=== PATIENT | female | born 1970 | race Caucasian/White ===

== ENCOUNTER 2018-03-19 14:30 | Observation (INO) | payer OTHER ==
[2018-03-19] MEDS ORDERED: Levofloxacin500mg IV 500 MG/100 ML BAG IV ONE (14:51)
[2018-03-19] MEDS ORDERED: Ringers Lactate 1,000 ML IV ONE (14:51)
[2018-03-19] MEDS ORDERED: NA CHLORIDE 0.9% 1,000 ML ONE (15:09)
[2018-03-19 15:27] LABS: Absolute Lymphocytes (CBC) 2.7 K/uL (0.7-4.9); Absolute Neutrophil 11.4 K/uL (1.8-8.0); Basophils % 0.6 % (0-1.3); Eosinophils % 0.7 % (0-4.4); Hematocrit 39.6 % (36.0-45.0); Lymphocytes % 17.7 % (15.3-44.8); MCV 84.9 fL (80-100); MPV 9.9 fL (7.6-11.3); Monocytes % 6.4 % (3.3-12.3); RBC Red Blood Cell Count 4.67 M/uL (3.86-4.86)
[2018-03-19 15:54] LABS: BUN Blood Urea Nitrogen 22 mg/dL (7-18); Bicarbonate 26 mmol/L (21-32); Glucose Level 182 mg/dL (74-106); Potassium 3.9 mmol/L (3.5-5.1); Sodium Level 136 mmol/L (136-145)
[2018-03-19] MEDS ORDERED: LIDOCAINE 1% W/EPI 1:100,000 MDV 50 ML VIAL ONE (17:32)
[2018-03-19] MEDS ORDERED: MIDAZOLAM HCL 2 MG/2 ML INJ ONE (17:39)
[2018-03-19] MEDS ORDERED: PROPOFOL 200 MG/20 ML VIAL IV ONE (17:39)
[2018-03-19] MEDS ORDERED: FENTANYL CITR 100 MCG/2 ML ONE (17:40)
[2018-03-19] MEDS ORDERED: VANCOMYCIN/NS 1 gm 1 GM/250 ML BAG IV ONE (17:45)
[2018-03-19] MEDS ORDERED: MEPERIDINE HCL 50 MG/ML AMP IM PRN (18:36)
[2018-03-19] MEDS ORDERED: PROMETHAZINE 25 MG TABLET PO PRN (18:38)
[2018-03-19] MEDS ORDERED: PROMETHAZINE 25 MG/ML VIAL IV PRN (18:38)
[2018-03-19] MEDS ORDERED: Ringers Lactate 1,000 ML IV SCH (19:00)
[2018-03-19] MEDS ORDERED: TRAMADOL HCL 50 MG TAB PO PRN (20:12)
[2018-03-19] MEDS ORDERED: METAXALONE 800 MG TAB PO PRN (20:12)
[2018-03-19] MEDS ORDERED: ALPRAZOLAM 0.5 MG TABLET PO PRN ×2 (20:12→21:18)
[2018-03-19] MEDS: Ringers Lactate 1,000 ML IV SCH (20:45)
[2018-03-19] MEDS ORDERED: VANCOMYCIN 500 MG in NA CHLORIDE 0.9% 100 ML IVPB ONE (21:00)
[2018-03-19] MEDS ORDERED: D50W 25 GM/50 ML SYRINGE IV PRN (21:23)
[2018-03-19] MEDS ORDERED: GLUCAGON 1 MG/VIAL IM PRN (21:23)
[2018-03-19] MEDS: HYDROCODONE/APAP 5/325 MG TAB PO PRN (22:28)
[2018-03-19] MEDS ORDERED: Levofloxacin500mg IV 500 MG/100 ML BAG IV SCH (23:00)
[2018-03-20] MEDS: METRONIDAZOLE 500mg IVPB 500 MG/100 ML BAG IV SCH ×3 (01:27→16:58)
[2018-03-20] MEDS: HYDROCODONE/APAP 5/325 MG TAB PO PRN ×3 (04:31→16:56)
--- NOTE | 2018-03-20 04:34 | OP ---
Date of Procedure: 03/19/2018 Surgeon: Fernanda Yusuf MD Preoperative Diagnoses: Right labial abscess, uncontrolled diabetes, cellulitis, and leukocytosis. Postoperative Diagnoses: Right labial abscess, uncontrolled diabetes, cellulitis, and leukocytosis. Procedure Performed: Exam under anesthesia, incision and drainage of the right labial abscess. Anesthesia: General. Complications: No complications. Drains: No drains. Specimens: Aerobic and anaerobic cultures of the abscess cavity. Packing was left in place wet-to-dry with quarter-inch Nu Gauze. The patient's condition was stable. Description Of Procedure: After informed consent was verified, the patient was taken back to the OR. One gram of vancomycin was given besides her 5 mg of Levaquin. The decision was made to do this ju st to cover for MRSA given the fact that she had leukocytosis to 15,000. So plan was to give her the IV antibiotics for 24 hours, first drain the abscess packet, and then discharge her after making arr angements for home health. The vulva, vagina, and perineum were prepped and draped in a sterile fashion. A 10 cc of local was g iven all around the abscess. A 2 cm incision was made over the abscess cavity. There was a large am ount of pus that drained. Cultures were taken. Thorough irrigation of the abscess cavity after brin ging down the loculations to help with the hemostat was done and packing was done after thorough irri gation with at least 100 mL of warm normal saline and suction, there was excellent hemostasis. The p acking with Nu Gauze was done tightly and then a Kerlix sponge was placed on top and bandaged. Instr ument, needle, and sponge counts were done and were correct at the end of the case. The patient anne rated the procedure well. She was recovered from anesthesia and taken to PACU in stable condition. She will be admitted to the floor for glycemic control, restart all her home medications, IV antibiot ics, peaks and troughs with the vancomycin, and a CBC in the morning. She will have a consult with [facility] primary care physician, Dr. Morgan. ROSARIO/TERRY Voice ID: [id number] Report ID: [id number]
[2018-03-20 05:24] LABS: Absolute Lymphocytes (CBC) 3.2 K/uL (0.7-4.9); Absolute Monocytes 0.7 K/uL (0.1-1.3); Absolute Neutrophil 8.6 K/uL (1.8-8.0); Eosinophils % 1.5 % (0-4.4); Lymphocytes % 24.8 % (15.3-44.8); MCH 29.1 pg (27.0-35.0); MCV 84.6 fL (80-100); MPV 9.7 fL (7.6-11.3); Monocytes % 5.3 % (3.3-12.3); RBC Red Blood Cell Count 4.13 M/uL (3.86-4.86)
[2018-03-20] MEDS: Ringers Lactate 1,000 ML IV SCH ×2 (05:49→16:58)
[2018-03-20] MEDS ORDERED: Levofloxacin500mg IV 500 MG/100 ML BAG IV SCH (06:30)
[2018-03-20] MEDS: INSULIN -REGULAR HUMAN 50 UNIT/0.5 ML ML SQ SCH ×4 (07:30→20:41)
[2018-03-20] MEDS ORDERED: GLIMEPIRIDE 2 MG TABLET PO SCH (08:00)
[2018-03-20] MEDS: VANCOMYCIN 1.5 GM in NA CHLORIDE 0.9% 500 ML IVPB SCH ×2 (08:52→21:00)
[2018-03-20] MEDS ORDERED: LEVOTHYROXINE SOD 0.1 MG TAB PO SCH (09:00)
[2018-03-20] MEDS ORDERED: MELOXICAM 7.5 MG TAB PO SCH (09:00)
[2018-03-20] MEDS ORDERED: RAMIPRIL 2.5 MG CAP PO SCH (09:00)
[2018-03-20] MEDS ORDERED: PREGABALIN 75 MG CAP PO SCH (09:00)
[2018-03-20] MEDS ORDERED: FENOFIBRATE 160 MG TAB PO SCH (09:00)
== END 2018-03-20 20:45 | disposition home health service (06) ==
LOC: OR 14:30 → 2ND 18:34
PROVIDERS: ADMIT Obstetrics & Gynecology; ATTEND Obstetrics & Gynecology
PROC: 0U9MXZZ Drainage of Vulva, External Approach (ICD-10-PCS; principal; 2018-03-19 17:00)
DX: N76.4 Abscess of vulva (principal); N76.2 Acute vulvitis; E11.65 Type 2 diabetes mellitus with hyperglycemia
CPT/HCPCS: 36415; 80048; 81025; 82962; 85025; 87070; 87075; 87077; 87186; 87205; G0378; J2175; J2250; J3010; J3370; J7030

== ENCOUNTER 2021-02-08 18:21 | Emergency (ER) | payer OTHER ==
--- OUTSIDE RECORDS SUMMARY | 2021-02-08 18:24 | XMS REPORT | Continuity of Care Document ---
:1970 Author Organization [facility] t Address [address] [place] [address] Care Team Providers Name Role Phone John GILES Primary Care Physician Unavailable John GILES Attending Clinician Unavailable Lab, Fam Pob I Attending Clinician Unavailable Payers Payer Name Policy Type Policy Number Effective Date Expiration Date S [facility] [id number] 2020 PPO 00:00:00 Problems This patient has no known problems. Allergies, Adverse Reactions, Alerts This patient has no known allergies or adverse reactions. Medications This patient has no known medications. Vital Signs Vital Name Observation Time Observation Value Comments Source HEIGHT 2020-12-15 10:36:00 169 cm WEIGHT 2020-12-15 10:36:00 75.2 kg Procedures This patient has no known procedures. Encounters Start End Encounter Admission Attending Care Care Encounter Source Date/Time Date/Time Type Type Clinicians Facility Department ID 2020-12-21 2020-12-21 Outpatient WAQAS TYLER MDA [id number] 10:54:09 10:54:09 Billy candelario 2020-12-21 2020-12-21 Outpatient WAQAS GILES MDA MDA [id number] 10:50:00 10:50:00 PETE candelario 2020-12-15 2020-12-15 Outpatient WAQAS GILES MDA MDA [id number] 15:54:33 16:37:35 PETE candelario 2020-12-15 2020-12-15 Outpatient WAQAS GILES MDA MDA [id number] 14:24:20 14:24:20 PETE Cervantes o n 2020-12-15 2020-12-15 Outpatient WAQAS GILES, MDA MDA [id number] 11:25:19 11:25:19 PETE Cervantes o n 2020-12-15 2020-12-15 Outpatient WAQAS GILES, MDA MDA [id number] 09:53:24 11:24:46 PETE Cervantes o n 2020-12-13 2020-12-13 Outpatient EL TISHA, MDA MDA [id number] 14:22:05 14:22:05 PETE Cervantes o n 2020-12-13 2020-12-13 Outpatient WAQAS GILES, MDA MDA [id number] 14:22:03 14:22:03 PETE Cervantes o n 2020-12-13 2020-12-13 Outpatient WAQAS GILES, MDA MDA [id number] 14:21:58 14:21:58 PETE Cervantes o n 2020-12-13 2020-12-13 Outpatient WAQAS GILES, MDA MDA [id number] 14:21:56 14:21:56 PETE Cervantes o n 2020-12-12 2020-12-12 Outpatient WAQAS GILES, MDA MDA [id number] 15:15:28 15:32:31 PETE Cervantes o n 2020-09-20 2020-09-20 Laboratory Lab, [facility] [id number] 11:03:16 11:23:16 Only Fam Pob I Health [id number] [place] [id number] Professio [phone] nal [phone] 2020-06-08 2020-06-08 Laboratory Lab, [facility] [id number] 10:48:27 11:01:40 Only Fam Pob I Health [id number] [place] [id number] Professio [phone] nal [phone] Results This patient has no known results.
[2021-02-08 20:40] LABS: Absolute Lymphocytes (CBC) 3.3 K/uL (0.7-4.9); Basophils % 1.1 % (0-1.3); Hematocrit 36.5 % (36.0-45.0); Lymphocytes % 30.8 % (15.3-44.8); MPV 9.9 fL (7.6-11.3); RBC Red Blood Cell Count 4.29 M/uL (3.86-4.86)
[2021-02-08 20:56] LABS: ALT/SGPT 26 U/L (12-78); AST/SGOT 16 U/L (15-37); Albumin 4.1 g/dL (3.4-5.0); Alkaline Phosphatase 48 U/L (45-117); BUN Blood Urea Nitrogen 27 mg/dL (7-18); Bicarbonate 27 mmol/L (21-32); Bilirubin Direct < 0.1 mg/dL (0-0.2); Bilirubin Total 0.5 mg/dL (0.2-1.0); Glucose Level 131 mg/dL (74-106); Lipase 117 U/L (73-393); Potassium 3.5 mmol/L (3.5-5.1); Protein, Total 7.6 g/dL (6.4-8.2); Sodium Level 139 mmol/L (136-145)
[2021-02-08] MEDS ORDERED: MORPHINE 4 MG/ML SYR ONE (21:00)
[2021-02-08] MEDS ORDERED: ONDANSETRON 4 MG/2 ML VIAL ONE (21:00)
--- NOTE | 2021-02-08 21:27 | RAD REPORT ---
EXAM DESCRIPTION: CT - Abdomen Pelvis W Contrast - 02/08/2021 9:11 pm CLINICAL HISTORY: Abdominal pain COMPARISON: none. TECHNIQUE: Computed axial tomography of the abdomen pelvis was obtained. 100 cc Isovue-300 was admin istered intravenously. Oral contrast was not requested which limits evaluation of bowel. All CT scans are performed using dose optimization technique as appropriate and may include automated exposure control or mA/KV adjustment according to patient size. FINDINGS: 6 millimeter nodule right lower lobe. 2 millimeter calculus left kidney. No hydronephrosis. The liver, spleen, pancreas, adrenal and right kidney appear unremarkable. There is no evidence of diverticulitis. Normal appendix. IMPRESSION: 2 millimeter nonobstructing calculus left kidney 6 millimeter right lower lobe nodule. If patient is high risk then followup CT in 6 months would be r ecommended
[2021-02-08 22:15] LABS: Urine Blood Negative (Negative); Urine Glucose Negative (Negative); Urine Protein Negative (Negative); Urine Specific Gravity <=1.005 (1.005-1.030)
--- NOTE | 2021-02-08 22:16 | ER ---
Nurse's Notes [facility] Name: Pema Dietz Age: 50 yrs Sex: Female : 1970 Arrival Date: 02/08/2021 Time: 18:24 Bed 8 Private MD: Stephan Morgan Diagnosis: Calculus of kidney;Lower abdominal pain, unspecified Presentation: 02/08 18:32 Chief complaint: Patient states: LLQ abdominal pain x 3 days, radiates to LUQ while jl7 walking, denies N/V/D, denies urinary symptoms. Coronavirus screen: Client denies travel out of the [place] in the last 14 days. At this time, the client does not indicate any symptoms associated with coronavirus-19. Ebola Screen: No symptoms or risks identified at this time. Initial Sepsis Screen: Does the patient meet any 2 criteria? No. Patient's initial sepsis screen is negative. Does the patient have a suspected source of infection? No. Patient's initial sepsis screen is negative. Risk Assessment: Do you want to hurt yourself or someone else? Patient reports no desire to harm self or others. Onset of symptoms was February 06, 2021. Care prior to arrival: None. 18:32 Method Of Arrival: [facility] 18:32 Acuity: MARY 3 jl7 Triage Assessment: 18:34 General: Appears in no apparent distress. uncomfortable, Behavior is calm, cooperative, jl7 appropriate for age. Pain: Complains of pain in left lower quadrant Pain currently is 8 out of 10 on a pain scale. GI: Patient currently denies diarrhea, nausea, vomiting. 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 - Social history:: Smoking status: Patient reports the use of cigarette tobacco products, smokes one pack cigarettes per day. Screenin:28 Abuse screen: Denies threats or abuse. Denies injuries from another. Nutritional ad5 screening: No deficits noted. Tuberculosis screening: No symptoms or risk factors identified. Fall Risk None identified. Assessment: 20:26 General: Appears in no apparent distress. Behavior is calm, cooperative, appropriate ad5 for age. Neuro: No deficits noted. Level of Consciousness is awake, alert, obeys commands, Oriented to person, place, time, situation, Appropriate for age. Cardiovascular: No deficits noted. Heart tones present Capillary refill < 3 seconds Patient's skin is warm and dry. Cardiovascular: Pulses are all present. Respiratory: No deficits noted. Airway is patent Respiratory effort is even, unlabored, Respiratory pattern is regular, symmetrical. GI: Bowel sounds present X 4 quads. Abd is soft and non tender Pt reports L side abd pain, hx of "cysts", states feels similar. Irregular menstrual periods per pt. Pt states "bloated". Denies other GI/ c/o. : No deficits noted. No signs and/or symptoms were reported regarding the genitourinary system. Derm: Skin is pink, warm \\T\\ dry. Musculoskeletal: No deficits noted. No signs and/or symptoms reported regarding the musculoskeletal system. 21:47 Reassessment: Patient appears in no apparent distress at this time. Patient and/or ad5 family updated on plan of care and expected duration. Pain level reassessed. Patient is alert, oriented x 3, equal unlabored respirations, skin warm/dry/pink. Patient states symptoms have improved. 22:22 Reassessment: Patient appears in no apparent distress at this time. No changes from ad5 previously documented assessment. Patient is alert, oriented x 3, equal unlabored respirations, skin warm/dry/pink. Vital Signs: 18:32 BP 146 / 76; Pulse 86; Resp 17; Temp 98.2; Pulse Ox 99% on R/A; Weight 72.57 kg (R); jl7 Height 5 ft. 4 in. (162.56 cm); Pain 9/10; 20:29 BP 123 / 76; Pulse 73; Resp 16 S; Pulse Ox 97% on R/A; ad5 21:47 BP 123 / 68; Pulse 70; Resp 16 S; Pulse Ox 97% on R/A; ad5 22:22 BP 123 / 68; Pulse 72; Resp 16 S; Pulse Ox 100% on R/A; ad5 18:32 Body Mass Index 27.46 (72.57 kg, 162.56 cm) jl7 ED Course: 18:24 Patient arrived in ED. am2 18:24 Stephan Morgan MD is Private Physician. am2 18:34 Triage completed. jl7 18:34 Arm band placed on right wrist. Patient placed in waiting room, Patient notified of jl7 wait time. 20:01 José Miguel Best MD is Attending Physician. ps1 20:02 Diaz Mario is Primary Nurse. ad5 20:28 Patient has correct armband on for positive identification. Placed in gown. Bed in low ad5 position. Call light in reach. Side rails up X 1. Pulse ox on. NIBP on. Door closed. Noise minimized. Warm blanket given. 20:28 No provider procedures requiring assistance completed. Initial lab(s) drawn, by me, ad5 sent to lab. Inserted saline lock: 20 gauge in right antecubital area, using aseptic technique. Blood collected. 20:49 Lipase Sent. bs2 20:49 Hepatic Function Sent. bs2 20:49 Basic Metabolic Panel Sent. bs2 21:13 CT Abd/Pelvis - IV Contrast Only In Process Unspecified. EDMS 22:15 Fernanda Yusuf MD is Referral Physician. ps1 22:39 IV discontinued, intact, bleeding controlled, No redness/swelling at site. Pressure ad5 dressing applied. Administered Medications: 20:45 Drug: morphine 4 mg Route: IVP; Site: right antecubital; ad5 21:48 Follow up: Response: No adverse reaction; Pain is decreased; RASS: Alert and Calm (0) ad5 20:45 Drug: Zofran (Ondansetron) 4 mg Route: IVP; Site: right antecubital; ad5 21:48 Follow up: Response: No adverse reaction ad5 Outcome: 22:16 Discharge ordered by . ps1 22:38 Discharged to home ambulatory, with significant other. ad5 22:38 Condition: stable 22:38 Discharge instructions given to patient, Instructed on discharge instructions, follow up and referral plans. medication usage, Demonstrated understanding of instructions, follow-up care, medications, Prescriptions given X 2. 22:39 Patient left the ED. ad5 Signatures: Dispatcher [employer] EDMS Genet Andujar RN RN jl7 Olesya Parmar am2 José Miguel Best MD MD ps1 Diaz Mario ad5 Lee, Meera, RN RN bs2 Corrections: (The following items were deleted from the chart) 18:35 18:34 Allergies: No Known Allergies; jl7 jl7
--- NOTE | 2021-02-08 22:16 | EDPHYS ---
Physician Documentation [facility] Name: Pema Dietz Age: 50 yrs Sex: Female : 1970 Arrival Date: 02/08/2021 Time: 18:24 Bed 8 Private MD: Stephan Morgan ED Physician José Miguel Best HPI: 02/08 21:44 This 50 yrs old Female presents to ER via Ambulatory with complaints of ps1 Abdominal Pain - LLQ. 21:44 Patient states over last 3 days she has had left lower quadrant and groin pain. Hx of ps1 ovarian cyst, BTL, and ovarian polyp. Pain is mild with laying down worse with ambulation. Denies fever. Taking tylenol / ibuprofen without remission. Course is unchanged. Denies dysuria, VB, or discharge. No nausea or vomiting. . 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 - Social history:: Smoking status: Patient reports the use of cigarette tobacco products, smokes one pack cigarettes per day. ROS: 21:52 Constitutional: Negative for fever, chills, and weight loss, Eyes: Negative for injury, ps1 pain, redness, and discharge, Cardiovascular: Negative for chest pain, palpitations, and edema, Respiratory: Negative for shortness of breath, cough, wheezing, and pleuritic chest pain, MS/Extremity: Negative for injury and deformity, Skin: Negative for injury, rash, and discoloration, Neuro: Negative for headache, weakness, numbness, tingling, and seizure. 21:52 Abdomen/GI: Positive for abdominal pain, Negative for black/tarry stool, rectal pain, rectal bleeding. Exam: 21:52 Constitutional: This is a well developed, well nourished patient who is awake, alert, ps1 and in no acute distress. Head/Face: Normocephalic, atraumatic. Eyes: Pupils equal round and reactive to light, extra-ocular motions intact. Lids and lashes normal. Conjunctiva and sclera are non-icteric and not injected. Cardiovascular: Regular rate and rhythm. No gallops, murmurs, or rubs. Normal PMI, no JVD. No pulse deficits. Respiratory: Lungs have equal breath sounds bilaterally, clear to auscultation and percussion. No rales, rhonchi or wheezes noted. No increased work of breathing, no retractions or nasal flaring. 21:52 Abdomen/GI: Inspection: abdomen appears normal, Bowel sounds: normal, Palpation: mild abdominal tenderness, in the left lower quadrant, rebound tenderness, is not appreciated, involuntary guarding, is not appreciated. Vital Signs: 18:32 BP 146 / 76; Pulse 86; Resp 17; Temp 98.2; Pulse Ox 99% on R/A; Weight 72.57 kg (R); jl7 Height 5 ft. 4 in. (162.56 cm); Pain 9/10; 20:29 BP 123 / 76; Pulse 73; Resp 16 S; Pulse Ox 97% on R/A; ad5 21:47 BP 123 / 68; Pulse 70; Resp 16 S; Pulse Ox 97% on R/A; ad5 22:22 BP 123 / 68; Pulse 72; Resp 16 S; Pulse Ox 100% on R/A; ad5 18:32 Body Mass Index 27.46 (72.57 kg, 162.56 cm) jl7 MDM: 20:23 Patient medically screened. ps1 21:52 Differential diagnosis: kidney stone, malignancy, nonspecific abdominal pain, ovarian ps1 cyst, uterine fibroids, urinary tract infection. Data reviewed: vital signs, nurses notes, lab test result(s), EKG, and as a result, I will discharge patient. Counseling: I had a detailed discussion with the patient and/or guardian regarding: the historical points, exam findings, and any diagnostic results supporting the discharge/admit diagnosis, lab results, radiology results, the need for outpatient follow up, to return to the emergency department if symptoms worsen or persist or if there are any questions or concerns that arise at home. ED course: Pain meds in ED improved symptoms. Has 2mm stone. Home with expectant management. Toradol, zofran. Encourage fluids. Follow up with urology. Return precautions given. . 02/08 20:13 Order name: Basic Metabolic Panel; Complete Time: 21:39 ps1 02/08 20:13 Order name: CBC with Diff; Complete Time: 20:47 [facility] 02/08 20:13 Order name: Hepatic Function; Complete Time: 21:39 [facility] 02/08 20:13 Order name: Lipase; Complete Time: 21:39 [facility] 02/08 20:13 Order name: CT Abd/Pelvis - IV Contrast Only; Complete Time: 21:39 [facility] 02/08 22:14 Order name: Urine Dipstick-Ancillary; Complete Time: 22:17 [facility] 02/08 20:13 Order name: IV Saline Lock; Complete Time: 20:45 [facility] 02/08 20:13 Order name: Labs collected and sent; Complete Time: 20:45 [facility] 02/08 20:13 Order name: Urine Dipstick-Ancillary (obtain specimen) ps1 Administered Medications: 20:45 Drug: morphine 4 mg Route: IVP; Site: right antecubital; ad5 21:48 Follow up: Response: No adverse reaction; Pain is decreased; RASS: Alert and Calm (0) ad5 20:45 Drug: Zofran (Ondansetron) 4 mg Route: IVP; Site: right antecubital; ad5 21:48 Follow up: Response: No adverse reaction ad5 Disposition Summary: 02/08/21 22:16 Discharge Ordered Location: Home ps1 Problem: new ps1 Symptoms: have improved ps1 Condition: Stable ps1 Diagnosis - Calculus of kidney ps1 - Lower abdominal pain, unspecified ps1 Followup: ps1 - With: Fernanda Yusuf MD - When: as scheduled for reevaluation - Reason: Followup: ps1 - With: Emergency Department - When: As needed - Reason: Fever > 102 F, Worsening of condition Discharge Instructions: - Discharge Summary Sheet ps1 - Kidney Stones ps1 Forms: - Medication Reconciliation Form ps1 - Thank You Letter ps1 - Antibiotic Education ps1 - Prescription Opioid Use ps1 - Work release form ad5 Prescriptions: - ketorolac 10 mg Oral tablet - take 1 tablet by ORAL route every 4-6 hours not to exceed 40mg in 24hrs for up ps1 to 5 days total use; 15 tablet; Refills: 0, Product Selection Permitted - Zofran 4 mg Oral Tablet - take 1 tablet by ORAL route every 12 hours As needed; 20 tablet; Refills: 0, ps1 Product Selection Permitted Signatures: Dispatcher [facility] [employer] [facility] Genet Win RN RN jl7 José Miguel Best MD MD ps1 Diaz Mario ad5 Corrections: (The following items were deleted from the chart) 18:35 18:34 Allergies: No Known Allergies; [id number] jl7 21:53 21:44 Patient states over last 3 days she has had left lower quadrant and groin pain. ps1 Hx of ovarian cyst, BTL, and ovarian polyp. Pain is mild with laying down. . ps1
[2021-02-08 23:01] VITALS: TEMP 98.2
[2021-02-08 23:04] VITALS: BP 123/68
[2021-02-08 23:06] VITALS: O2SAT 100
== END 2021-02-08 22:39 | disposition home or self-care (01) ==
LOC: ER 18:21
DX: N20.0 Calculus of kidney (principal); F17.210 Nicotine dependence, cigarettes, uncomplicated; Z88.0 Allergy status to penicillin; Z88.1 Allergy status to other antibiotic agents
CPT/HCPCS: 85025; 80048; 36415; 80076; 81003; 83690; 74177; 96375; 96374; 99284; Q9967; J2405

== ENCOUNTER 2024-03-25 06:31 | Day surgery (SDC) | payer OTHER ==
[2024-03-24 09:46] LABS: Absolute Basophils 0.1 K/uL (0-0.5); Absolute Eosinophils 0.1 K/uL (0-0.5); Absolute Lymphocytes (CBC) 1.8 K/uL (0.7-4.9); Absolute Monocytes 0.6 K/uL (0.1-1.3); Absolute Neutrophil 7.6 K/uL (1.8-8.0); Basophils % 0.8 % (0-1.3); Eosinophils % 1.2 % (0-4.4); Hematocrit 38.6 % (36.0-45.0); Hemoglobin 12.9 g/dL (12.0-15.0); Lymphocytes % 17.2 % (15.3-44.8); MCH 29.2 pg (27.0-35.0); MCHC 33.4 g/dL (32.0-36.0); MCV 87.3 fL (80-100); MPV 9.3 fL (7.6-11.3); Monocytes % 6.4 % (3.3-12.3); Neutrophils % 74.4 % (41.7-73.7); Platelets 298 thou/uL (152-406); RBC Red Blood Cell Count 4.42 M/uL (3.86-4.86); Red Cell Distribution Width 13.2 % (12.1-15.2)
[2024-03-24 10:02] LABS: ALT/SGPT 23 U/L (13-56); Albumin/Globulin Ratio 1.1 (1.1-1.8); Alkaline Phosphatase 51 U/L (45-117); BUN Blood Urea Nitrogen 24 mg/dL (7-18); Bicarbonate 29 mEq/L (21-32); Bilirubin Direct 0.2 mg/dL (0-0.2); Bilirubin Indirect, Calculated 0.4 mg/dL (0.2-0.8); Bilirubin Total 0.6 mg/dL (0.2-1.0); Globulin 3.5 g/dL (2.3-3.5); Glomerular Filtration Rate 91 ml/min (=/>90); Glucose Level 164 mg/dL (74-106); Lipase 52 U/L (13-75); Protein, Total 7.5 g/dL (6.4-8.2); Sodium Level 139 mEq/L (136-145)
[2024-03-24 10:04] LABS: AST/SGOT < 10 U/L (15-37)
--- NOTE | 2024-03-24 11:35 | RAD REPORT ---
EXAM DESCRIPTION: RAD - Chest Pa And Lat (2 Views) - 03/24/2024 9:31 am CLINICAL HISTORY: Pre op pending cholecystectomy. Appetite COMPARISON: Chest Pa And Lat (2 Views) dated 03/24/2021; Chest Pa And Lat (2 Views) dated 06/28/2017; Chest Pa And Lat (2 Views) dated 02/07/2016; CHEST PA AND LAT 2 VIEW dated 08/14/2010 TECHNIQUE: PA and lateral views of the chest were obtained. FINDINGS: The lungs are clear. Heart size is normal and central vasculature is within normal limits. No pleural effusion or pneumothorax seen. No acute bony finding noted. IMPRESSION: No acute cardiopulmonary process.
--- NOTE | 2024-03-24 12:37 | EKG ---
Test Date: 2024-03-24 Test Time: 09:13:14 [place] Sea Diver: PRABHAKAR MEASUREMENT RESULTS: Intervals: Rate: 67 CA: 176 QRSD: 76 QT: 402 QTc: 424 [place]: P: 42 CA: 176 QRS: 27 T: 54 INTERPRETIVE STATEMENTS: Normal sinus rhythm Normal ECG No previous ECG available for comparison Electronically Signed On 03-24-24 12:37:30 CDT by Michael Alexandra
[2024-03-25] MEDS ORDERED: CEFOXITIN SODIUM 1 GM/VIAL ONE (06:48)
[2024-03-25] MEDS ORDERED: NA CHLORIDE 0.9% 1,000 ML ONE (06:49)
[2024-03-25] MEDS ORDERED: FENTANYL CITR 100 MCG/2 ML ONE (06:57)
[2024-03-25] MEDS ORDERED: propofoL 200 MG/20 ML VIAL IV ONE (06:57)
[2024-03-25] MEDS ORDERED: KETOROLAC 30 MG/ML INJ ONE (06:57)
[2024-03-25] MEDS ORDERED: MIDAZOLAM HCL 2 MG/2 ML INJ ONE (06:57)
[2024-03-25] MEDS ORDERED: GLYCOPYRROLATE 0.2 MG/ML SYR ONE ×2 (06:57→08:16)
[2024-03-25] MEDS ORDERED: LIDOCAINE 1% MPF 5 ML VIAL ONE (06:57)
[2024-03-25] MEDS ORDERED: ONDANSETRON 4 MG/2 ML VIAL ONE (06:57)
[2024-03-25] MEDS ORDERED: ROCURONIUM 50 MG/5 ML VIAL IV ONE (06:57)
[2024-03-25] MEDS: CIPROFLOXACIN 400mg IV 400 MG/200 ML BAG IV ONE (07:55)
[2024-03-25] MEDS ORDERED: NEOSTIGMINE 1 MG/ML -10 ML VIAL ONE (08:16)
[2024-03-25] MEDS ORDERED: Mastisol Adhesive Liq ONE (08:22)
--- NOTE | 2024-03-25 08:22 | P.BOP ---
Preoperative diagnosis: Symptomatic cholelithiasis, cholecystitis, RUQ abd pain Postoperative diagnosis: same Primary procedure: Laparoscopic cholecystectomy Estimated blood loss: <10cc Specimen: gb Findings: as above Anesthesia: General Complications: None Transferred to: Recovery Room Condition: Good
[2024-03-25] MEDS: SUGAMMADEX SODIUM 200 MG/2 ML VIAL IV ONE (08:43)
[2024-03-25] MEDS: HYDROMORPHONE HCL 1 MG/ML INJ ONE (08:55)
[2024-03-25] MEDS: HYDROCODONE/APAP 7.5/325 MG TAB ONE (09:50)
[2024-03-25] MEDS ORDERED: ONDANSETRON 4 MG (ODT) TAB ONE ×2 (10:47→10:48)
[2024-03-25 11:01] VITALS: BP 124/59; TEMP 97; O2SAT 99
--- NOTE | 2024-03-25 13:39 | DS ---
Date of Discharge: 03/25/2024 Diagnoses: Symptomatic cholelithiasis, cholecystitis, right upper quadrant abdominal pain. Procedure: Laparoscopic cholecystectomy. Condition: Stable. Disposition: Home. Activity: As tolerated. No heavy lifting. Discharge Instructions: Follow up in my office in 1 week. Call for appointment [phone]. Keep area dry for 48 hours, then may shower. Keep Steri-Strip intact. NATHALY/TERRY Voice ID: [id number] Report ID: [id number]
--- NOTE | 2024-03-25 13:39 | OP ---
Date of Procedure: 03/25/2024 Surgeon: Scott Lacey MD Preoperative Diagnoses: Symptomatic cholelithiasis, cholecystitis, right upper quadrant abdominal pa in. Postoperative Diagnoses: Symptomatic cholelithiasis, cholecystitis, right upper quadrant abdominal p ain. Procedure: Laparoscopic cholecystectomy. Estimated Blood Loss: Less than 10 cc. Anesthesia: General plus local. Complications: None. Indications: This is a case of a female, who came with above diagnosis. Fully explained the benefit s, alternatives, and risks of laparoscopic, possible open cholecystectomy which include, but not limi alissa to, infection, bleeding, damage to adjacent structures, anesthesia complication, choledocholithia sis, bile leak, pancreatitis, PR, and even . She also understands this may not relieve any symp toms. She might need more than one surgical intervention. She understood, signed a consent. Description Of The Procedure: The patient was brought to the operating room, placed in supine positi on. Anesthesia was done without complication. Abdominal area was prepped and draped in sterile fash ion. Marcaine 0.5% was injected for local anesthetic followed by sharp incision of the skin in the i nfraumbilical region. Incision was carried down to fascia, which was opened under direct vision. Pe ritoneum was encountered, opened under direct vision. Vicryl #1 placed inside the fascia. David tr ocar was carefully introduced and pneumoperitoneum was obtained. I placed three more trocars, 5 mm e ach one of them, one in the epigastric area, two in the right upper quadrant using same technique whi ch consisted of local anesthetic, sharp incision of the skin, introduction of the trocars under direc t vision. This allowed me to put a grasper in the fundus of the gallbladder, another grasper in the infundibulum, retracting the gallbladder in the inferolateral fashion exposing the triangle of Calot, obtaining critical view. Cystic duct and cystic artery were clearly isolated, freed circumferential ly and a connection between those and the gallbladder were clearly identified. I proceeded to ligate those by using at least 3 clips proximal, 1 clip distal, ligation in the middle. Same was done with the cystic artery. No bile leak. No bleeding. The gallbladder was removed from liver using Bovie cauterizer and removed from abdominal cavity using EndoCatch through the umbilical incision. Area wa s inspected once again. No bile leak. No bleeding. At that moment, I proceeded to remove the troca rs under direct vision, deflated pneumoperitoneum, closed the fascia with #1 Vicryl, irrigated subcut aneous tissue, closed that with 3-0 chromic and the skin with 3-0 chromic in a subcuticular fashion a nd Steri-Strips on top. Sponge counts and instrument counts were correct. Patient tolerated the pro cedure well. Patient sent to recovery room in stable condition. NATHALY/TERRY Voice ID: [id number] Report ID: [id number]
== END 2024-03-25 10:57 | disposition home or self-care (01) ==
LOC: OR 06:31
PROVIDERS: ATTEND Surgery
PROC: 0FT44ZZ Resection of Gallbladder, Percutaneous Endoscopic Approach (ICD-10-PCS; principal; 2024-03-25 07:30)
DX: K80.10 Calculus of gallbladder with chronic cholecystitis without obstruction (principal); K82.8 Other specified diseases of gallbladder; R10.11 Right upper quadrant pain; E78.00 Pure hypercholesterolemia, unspecified; E11.9 Type 2 diabetes mellitus without complications; Z79.4 Long term (current) use of insulin
CPT/HCPCS: 93005; 85025; 80048; 36415; 82947 ×2; 80076; 88304; 83690; 71046; 47562; Q0162 ×2; J2704; J2710; J2001; J2250; J3010; J1170; J2405; J0744; J7030; J0694